=== PATIENT | male | born 1950 | race Two or more races ===

== ENCOUNTER 2024-01-07 05:35 | Day surgery (SDC) | payer OTHER ==
[~2024-01-07 05:35] MED LIST: HYDROmorphone 0.5 MG/0.5 ML SYRINGE IVP PRN
[2024-01-07] MEDS: IV FLUID CONTINUATION 1,000 ML IV ONE (06:46)
[2024-01-07] MEDS: LACTATED RINGERS 1,000 ML IV SCH (06:53)
[2024-01-07] MEDS: DEXAMETHASONE SOD PHOSPHATE 4 MG/ML 1 ML VIAL IV ONE (06:53)
[2024-01-07] MEDS: ONDANSETRON 4 MG/2 ML VIAL IVP ONE (06:54)
[2024-01-07] MEDS: TAMSULOSIN 0.4 MG CAP.ER.24H PO STA (06:54)
[2024-01-07] MEDS: ACETAMINOPHEN TAB 500 MG TAB PO PRN (06:54)
[2024-01-07] MEDS: HEPARIN SODIUM,PORCINE 5,000 UNIT/ML 1 ML VIAL SQ PRN (06:54)
[2024-01-07 06:59] LABS: Basophils % (A) 1 %; Eosinophils # (A) 0.1 k/uL (0-0.7); Eosinophils % (A) 2 %; HCT 45.7 % (39.0-53.0); HGB 15.3 gm/dL (13.0-17.5); Lymphocytes # (A) 1.2 k/uL (1.0-4.8); Lymphocytes % (A) 20 %; MCH 29.6 pg (25.0-35.0); MCHC 33.5 g/dL (31.0-37.0); MCV 88.6 fL (80.0-100.0); Mean Platelet Volume 7.9; Monocytes # (A) 0.5 k/uL (0-1.0); Monocytes % (A) 8 %; Neutrophils # (A) 4.1 k/uL (1.3-7.7); Neutrophils % (A) 69 %; Platelet Count 182 k/uL (150-450); RBC 5.16 m/uL (4.30-5.90)
[2024-01-07] MEDS ORDERED: KETAMINE HCL IN 0.9 % NACL 50 MG/5 ML SYRINGE ONE (07:37)
[2024-01-07] MEDS ORDERED: fentaNYL (PF) 50 MCG/ML 2 ML AMP ONE (07:37)
[2024-01-07] MEDS ORDERED: SUCCINYLCHOLINE CHLORIDE 200 MG/10 ML VIAL IV ONE (07:37)
[2024-01-07] MEDS ORDERED: MIDAZOLAM 2 MG/2 ML VIAL ONE (07:37)
[2024-01-07] MEDS ORDERED: KETOROLAC 15 MG/ML 1 ML VIAL ONE (07:37)
[2024-01-07] MEDS ORDERED: PHENYLEPHRINE 10 MG/ML VIAL ONE (07:37)
[2024-01-07] MEDS ORDERED: PROPOFOL 10 MG/ML 20 ML VIAL IV ONE (07:37)
[2024-01-07 07:52] LABS: ALT 15 U/L (4-49); AST 25 U/L (17-59); African American GFR (CKD) 78 (>60 ml/min/1.73 sqM); Albumin 4.5 g/dL (3.5-5.0); Alkaline Phosphatase 48 U/L (38-126); Anion Gap 6 mmol/L; Blood Urea Nitrogen 17 mg/dL (9-20); Calcium 9.7 mg/dL (8.4-10.2); Carbon Dioxide 26 mmol/L (22-30); Chloride 108 mmol/L (98-107); Glucose 100 mg/dL (74-99); Non-African American GFR(CKD) 67 (>60 ml/min/1.73 sqM); Potassium 4.1 mmol/L (3.5-5.1); Sodium 140 mmol/L (137-145); Total Bilirubin 1.7 mg/dL (0.2-1.3); Total Protein 7.4 g/dL (6.3-8.2)
[2024-01-07] MEDS: BUPIVACAINE (PF) 0.25% 30 ML VIAL SQ ONE ×2 (08:00→08:31)
[2024-01-07] MEDS: LACTATED RINGERS 1,000 ML IV ONE (08:32)
[2024-01-07 08:46] VITALS: TEMP 97
--- NOTE | 2024-01-07 09:29 | P.OP ---
Date of Procedure: 01/07/24 Preoperative Diagnosis: left inguinal hernia Postoperative Diagnosis: Left inguinal hernia Cord lipoma Procedure(s) Performed: Open repair of left inguinal hernia with Prolene hernia mesh system Excision of left cord lipoma Anesthesia: MELINDA Surgeon: Nabeel Pires Estimated Blood Loss (ml): 5 Pathology: other (Left cord lipoma) Condition: stable Disposition: PACU Description of Procedure: DESCRIPTION OF PROCEDURE: The patient was placed in the supine position after receiving adequate anesthesia. Patients groin was prepped and draped in the usual sterile fashion. A standard hernia incision was made and the subcutaneous tissues were divided with electrocautery. The fascia of the external oblique was exposed. A jerica the fascia was made with #15 blade. The fascia was then opened with pair of Metzenbaum scissors. A Weitlaner retractor was placed in the wound and the cord structures were grasped and dissected free from the inguinal canal. A rubber [place] drain was placed around the cord structures. The hernial sac was seen on the anterior-medial portion of the cord and this was dissected free from the cord. The left cord lipoma was dissected free sent to pathology. The hernia sac was then invaginated to the peritoneal cavity. Using blunt finger dissection, the preperitoneal space was dissected and then the Prolene hernial mesh plug was placed into the prepared space. The inferior leaf was expanded. The superior leaf was secured to the pubic tubercle using 2-0 Prolene suture. The lateral portion of the superior leaf was incised and cords tied and secured to the transversalis fascia using 2-0 Prolene suture. Fascia of the external oblique was then closed using #0 Vicryl suture. The Clement drain was removed. The Scarpas fascia was then closed with 3-0 Vicryl suture and skin was closed with kasey. The patient tolerated the procedure well.
[2024-01-07 10:15] VITALS: RESP 20
[2024-01-07 11:33] VITALS: BP 140/80; PULSE 80
== END 2024-01-07 11:34 | disposition home or self-care (01) ==
LOC: OR 05:35
PROVIDERS: ATTEND Surgery
DX: D17.6 Benign lipomatous neoplasm of spermatic cord (principal)
CPT/HCPCS: 80053; 85025; 49505; C1781; J2250; J0330; J1644; J1100; J0690; J2405; J3010; J1885; J2704; J2371; J0665

== ENCOUNTER 2024-01-15 10:28 | Emergency (ER) | payer OTHER ==
--- NOTE | 2024-02-12 07:05 | CT ---
EXAM: CT abdomen pelvis with contrast DATE OF EXAM: 01/15/24 Reason for study: Inguinal hernia repair one week ago, pain COMPARISON: None, please note PACS downtime occurred during the radiologist interpretation of these images with limited priors/reports. TECHNIQUE: CT axial imaging with axial imaging and sagittal and coronal reformats following the administration o f ISOVIEW 300 100mL IV contrast material.. One or more CT dose reduction strategies were utilized dur ing this examination. Total DLP administered was 1078 mGycm. FINDINGS: LOWER CHEST: Unremarkable ABDOMEN LIVER: Unremarkable GALLBLADDER AND BILE DUCTS: Unremarkable. PANCREAS: Unremarkable. SPLEEN: Unremarkable. ADRENAL GLANDS: Unremarkable. KIDNEYS AND URETERS: No evidence of hydronephrosis or renal calculus. The ureters are unremarkable. T iny left renal cortical cyst. PELVIS BLADDER: Unremarkable REPRODUCTIVE: Unremarkable. ABDOMEN & PELVIS STOMACH AND BOWEL: Stomach and duodenum are unremarkable. No evidence of bowel obstruction. PERITONEUM: No evidence of pneumoperitoneum or free fluid. VASCULATURE: No evidence of aortic aneurysm. MUSCULOSKELETAL: No acute osseous abnormalities LYMPH NODES: No gross evidence for lymphadenopathy. SOFT TISSUE/ABDOMINAL WALL: Postsurgical changes of the left inguinal region with phlegmonous changes including fat stranding and a few foci of gas extending down into the scrotum. There is a left scrot al effusion. No bowel enters the skull inguinal hernia. Fat-containing umbilical hernia. IMPRESSION: Postsurgical changes to the left inguinal region with inflammation changes and of gas extending down into the scrotum. There is a left scrotal effusion. Unclear if this is normal postsurgical change or infection. Early abscess formation should be in consideration if clinically there appears to be infec tion. No bowel enters the hernia.
== END 2024-01-15 13:49 | disposition home or self-care (01) ==
LOC: EC 10:28
DX: R10.30 Lower abdominal pain, unspecified (principal)
CPT/HCPCS: 80053; 85025; 74177; 99284; Q9967